=== PATIENT | male | born 1970 | race Caucasian/White ===

== ENCOUNTER 2021-02-01 22:26 | Emergency (ER) | payer BC, OTHER ==
[~2021-02-01] VITALS: Ht 170.2 cm; Wt 99.8 kg
[2021-02-02 04:03] VITALS: BP 111/78
== END 2021-02-02 04:02 | disposition home or self-care (01) ==
LOC: ER 22:26
DX: H61.22 Impacted cerumen, left ear (principal)

== ENCOUNTER 2023-09-13 21:14 | Emergency (ER) | payer BC ==
[~2023-09-13] VITALS: Ht 170.2 cm; Wt 94.7 kg
[2023-09-13 21:31] VITALS: BP 141/84; PULSE 86; RESP 16; TEMP 98.2
[2023-09-14] MEDS ORDERED: IBUP-1456 PO (00:25)
[2023-09-14 01:17] VITALS: O2SAT 99
== END 2023-09-14 01:25 | disposition home or self-care (01) ==
LOC: ER 21:14
DX: S09.90XA Unspecified injury of head, initial encounter (principal); S00.01XA Abrasion of scalp, initial encounter; F17.210 Nicotine dependence, cigarettes, uncomplicated; V43.52XA Car driver injured in collision with other type car in traffic accident, initial encounter; Y93.89 Activity, other specified; Y92.410 Unspecified street and highway as the place of occurrence of the external cause; Y99.8 Other external cause status
CPT/HCPCS: 70450

== ENCOUNTER → 2023-09-22 | Outpatient (CLI) | payer BC ==
[~2023-09-22] MED LIST: IBUP-1456 PO
[2023-09-22 16:07] LABS: Urine WBC None Seen /hpf (0 - 3)
[2023-09-22 16:19] LABS: Basophils # (auto) 0 10 ^3/uL (0-0.2); Basophils % (auto) 0.8 % (0.0-2.0); Eosinophils # (auto) 0.1 10 ^3/uL (0-0.8); Eosinophils % (auto) 1.6 % (0.0-7.0); Hematocrit 46.8 % (41.0-53.0); Lymphocytes # (auto) 1.6 10 ^3/uL (0.4-5.4); Lymphocytes % (auto) 28.1 % (10.0-50.0); Mean Corpuscular Hgb Conc. 34.1 g/dL (32.0-36.0); Mean Corpuscular Volume 93.9 fL (80.0-100.0); Monocytes # (auto) 0.4 10 ^3/uL (0-1.3); Monocytes % (auto) 7.1 % (0.0-12.0); Neutrophils # (auto) 3.5 10 ^3/uL (1.6-8.6); Neutrophils % (auto) 62.4 % (37.0-80.0); Nucleated Red Blood Cells % 0.1 %; Red Blood Cells 4.99 10^6/uL (4.5-5.90); Red Cell Distribution Width 14.1 % (11.8-14.3); White Blood Cell 5.6 10^3/uL (4.4-10.8)
[2023-09-22 16:37] LABS: Urine Bacteria NONE SEEN /hpf (None Seen); Urine Blood Negative /uL (Negative); Urine Clarity Clear (Clear); Urine Color Colorless (Yellow); Urine Protein, UAD Negative (Negative); Urine Specific Gravity 1.006 (1.001-1.035); Urine Urobilinogen Normal (Negative)
[2023-09-22 16:47] LABS: Platelet Estimate Decreased
[2023-09-22 16:54] LABS: Prostate Specific Antigen 0.27 ng/mL (0.0-4.0)
[2023-09-22 16:55] LABS: Alanine Aminotransferase 39 U/L (7-40); Albumin 4.5 g/dL (3.2-4.8); Alkaline Phosphatase 94 U/L (46-116); Anion Gap 8 (5-15); Aspartate Aminotransferase 39 U/L (13-40); BUN/Creatinine Ratio 10.1 (10.0-20.0); Blood Urea Nitrogen 9 mg/dL (9-23); Calcium 9.3 mg/dL (8.5-10.1); Carbon Dioxide 25 mmol/L (20-30); Chloride 106 mmol/L (98-107); Cholesterol 140 mg/dL (< 200); Glucose 89 mg/dL (74-106); HDL Cholesterol 47 mg/dL (40-59); LDL Cholesterol 77 mg/dL (< 100); Potassium 4.1 mmol/L (3.5-5.1); Sodium 139 mmol/L (136-145); Triglycerides 113 mg/dL (< 150)
[2023-09-22 16:56] LABS: Bilirubin, Total 0.9 mg/dL (0.2-1.0); Erythrocyte Sedimentation Rate 8 mm/hr (0-20); Total Protein 7.6 g/dL (5.7-8.2)
[2023-09-22 16:58] LABS: T3 Total 1.55 ng/mL (0.60-1.81)
[2023-09-22 16:59] LABS: Free T4 (Free Thyroxine) 0.84 ng/dL (0.89-1.76)
== END | disposition home or self-care (01) ==
LOC: LAB 15:53
PROVIDERS: ATTEND Nurse Practitioner Gerontology
DX: Z00.01 Encounter for general adult medical examination with abnormal findings (principal); Z29.9 Encounter for prophylactic measures, unspecified; Z13.1 Encounter for screening for diabetes mellitus
CPT/HCPCS: 36415; 80053; 80061; 81001; 83036; 83735; 84153; 84439; 84443; 84480; 85025; 85652; 86141; 87086